=== PATIENT | female | born 1960 | race Caucasian/White ===

== ENCOUNTER 2016-10-21 19:33 | Observation (INO) | payer OTHER ==
[~2016-10-21] VITALS: Ht 167.6 cm; Wt 68.2 kg
[~2016-10-21 19:33] MED LIST: CETI10 PO; CO Q100C PO; ECOT81TA2 PO; ESTR1TAB PO; MULT1TAB PO; OMEG1CAP53 PO; VITA100018 PO; VITA100T7 PO; VITD400 PO
--- NOTE | 2016-10-21 19:52 | PD ---
HPI Chief Complaint: Neuro Symptoms/ Deficits Time Seen by Provider: 19:46 Travel History International Travel<30 days: No Contact w/Intl Traveler<30days: No Traveled to known affect area: No History of Present Illness HPI The patient is a 56-year-old female that at 1:30 noticed some very slight right arm and right leg weakness. The right arm weakness has mostly gone away but she still can feel a "shakiness" in her right leg. She says it feels slightly weak. She can walk normally and she can use her arm and hand normal headache. She denies any scotomata, eye symptoms or cranial nerve problems. She denies any fever. She states she felt slightly nauseated today at the beginning of the symptoms but is not nauseated now. She has not vomited. There is been no diarrhea or abdominal pain. The patient is taking 81 mg aspirin daily. PFSH Past Medical History Arthritis: No Asthma: No Autoimmune Disease: No Blood Disorders: No Anxiety: No Depression: Yes Heart Rhythm Problems: No Cancer: No Cardiovascular Problems: No High Cholesterol: No Chemotherapy: No Chest Pain: No Congestive Heart Failure: No COPD: No Cerebrovascular Accident: Yes (POSSIBLE -RELATED) Diabetes: No Diminished Hearing: No Endocrine: No Gastrointestinal Disorders: No GERD: No Glaucoma: No Genitourinary: No Headaches: No Hepatitis: No Hiatal Hernia: No Hypertension: No Immune Disorder: No Kidney Stones: No Musculoskeletal: No Neurologic: No Psychiatric: Yes Reproductive: No Respiratory: No Migraines: No Myocardial Infarction: No Radiation Therapy: No Renal Failure: No Seizures: No Sickle Cell Disease: No Sleep Apnea: No Thyroid Disease: No Ulcer: No PNEUMOCCOCAL Vaccine (Year): 2 Menopausal: Yes Tubal Ligation: Yes Past Surgical History Abdominal Surgery: No AICD: No Appendectomy: No Arteriovenous Shunt: No Cardiac Surgery: No Cholecystectomy: No Ear Surgery: No Endocrine Surgery: No Eye Surgery: Yes (LASIK) Genitourinary Surgery: No Gynecologic Surgery: Yes (TUBAL LIGATION) Hysterectomy: Yes Insulin Pump: No Joint Replacement: No Oral Surgery: No Pacemaker: No Thoracic Surgery: Yes (BILATERAL BREAST IMPLANTS) Other Surgery: Yes (BREAST AUGMENTATION) Social History Alcohol Use: No Tobacco Use: No (QUIT 30 YEARS AGO) Substance Use: No Allergies-Medications (Allergen,Severity, Reaction): Coded Allergies: acetaminophen (Unverified Allergy, Severe, NAUSEA, 8/26/17) ofloxacin (Unverified Allergy, Severe, DIZZINESS, 10/21/16) prednisone (Unverified Allergy, Severe, FACE REDNESS, BAD HEADACHES, ) sertraline (Unverified Allergy, Severe, BURNING SENSATION, 10/21/16) Reported Meds & Prescriptions Reported Meds & Active Scripts Active Review of Systems Except as stated in HPI: all other systems reviewed are Neg Physical Exam Narrative GENERAL: The patient is alert, oriented 3 in no apparent distress. SKIN: Focused skin assessment warm/dry. HEAD: Atraumatic. Normocephalic. EYES: Pupils equal and round. No scleral icterus. No injection or drainage. ENT: No nasal bleeding or discharge. Mucous membranes pink and moist. NECK: Trachea midline. No JVD. CARDIOVASCULAR: Regular rate and rhythm. No murmur appreciated. RESPIRATORY: No accessory muscle use. Clear to auscultation. Breath sounds equal bilaterally. GASTROINTESTINAL: Abdomen soft, non-tender, nondistended. Hepatic and splenic margins not palpable. MUSCULOSKELETAL: No obvious deformities. No clubbing. No cyanosis. No edema. NEUROLOGICAL: Awake and alert. No obvious cranial nerve deficits. Motor grossly within normal limits. Normal speech and gait. She does have a slight shakiness of her right foot on strength testing. Pinprick sensation is normal bilaterally. PSYCHIATRIC: Appropriate mood and affect; insight and judgment normal. Data Data Last Documented VS Vital Signs Date Time Temp Pulse Resp B/P (MAP) Pulse Ox O2 Delivery O2 Flow Rate FiO2 10/21/16 20:20 14 98 Room Air 10/21/16 19:59 98.3 70 145/75 (98) Orders Orders Electrocardiogram (10/21/16 19:46) Prothrombin Time / Inr (Pt) (10/21/16 19:46) Act Partial Throm Time (Ptt) (10/21/16 19:46) Complete Blood Count With Diff (10/21/16 19:46) Comprehensive Metabolic Panel (10/21/16 19:46) Creatine Kinase (Cpk) (10/21/16 19:46) Troponin I (10/21/16 19:46) Urinalysis - C+S If Indicated (10/21/16 19:46) Ct Brain W/O Iv Contrast(Rout) (10/21/16 19:46) Ecg Monitoring (10/21/16 19:46) Iv Access Insert/Monitor (10/21/16 19:46) Oximetry (10/21/16 19:46) Sodium Chloride 0.9% Flush (Ns Flush) (10/21/16 20:00) Labs Laboratory Tests Test 10/21/16 19:54 10/21/16 20:00 White Blood Count 12.7 TH/MM3 Red Blood Count 4.88 MIL/MM3 Hemoglobin 14.3 GM/DL Hematocrit 43.7 % Mean Corpuscular Volume 89.6 FL Mean Corpuscular Hemoglobin 29.4 PG Mean Corpuscular Hemoglobin Concent 32.8 % Red Cell Distribution Width 11.7 % Platelet Count 438 TH/MM3 Mean Platelet Volume 7.7 FL Neutrophils (%) (Auto) 72.1 % Lymphocytes (%) (Auto) 24.6 % Monocytes (%) (Auto) 2.9 % Eosinophils (%) (Auto) 0.1 % Basophils (%) (Auto) 0.3 % Neutrophils # (Auto) 9.2 TH/MM3 Lymphocytes # (Auto) 3.1 TH/MM3 Monocytes # (Auto) 0.4 TH/MM3 Eosinophils # (Auto) 0.0 TH/MM3 Basophils # (Auto) 0.0 TH/MM3 CBC Comment DIFF FINAL Differential Comment Prothrombin Time 10.3 SEC Prothromb Time International Ratio 0.9 RATIO Activated Partial Thromboplast Time 29.8 SEC Blood Urea Nitrogen 15 MG/DL Creatinine 0.88 MG/DL Random Glucose 125 MG/DL Total Protein 8.2 GM/DL Albumin 3.8 GM/DL Calcium Level 9.2 MG/DL Alkaline Phosphatase 115 U/L Aspartate Amino Transf (AST/SGOT) 32 U/L Alanine Aminotransferase (ALT/SGPT) 65 U/L Total Bilirubin 0.4 MG/DL Sodium Level 139 MEQ/L Potassium Level 3.5 MEQ/L Chloride Level 105 MEQ/L Carbon Dioxide Level 24.3 MEQ/L Anion Gap 10 MEQ/L Estimat Glomerular Filtration Rate 67 ML/MIN Total Creatine Kinase 110 U/L Troponin I LESS THAN 0.02 NG/ML Urine Color YELLOW Urine Turbidity SLIGHT Urine pH 7.0 Urine Specific [place] 1.020 Urine Protein 30 mg/dL Urine Glucose (UA) NEG mg/dL Urine Ketones TRACE mg/dL Urine Occult Blood TRACE Urine Nitrite NEG Urine Bilirubin NEG Urine Leukocyte Esterase NEG Urine RBC 0-3 /hpf Urine Squamous Epithelial Cells 0-5 /hpf Urine Bacteria OCC /hpf Urine Mucus OCC /lpf Microscopic Urinalysis Comment CULT NOT INDICATED MDM Medical Decision Making Medical Screen Exam Complete: Yes Emergency Medical Condition: Yes Medical Record Reviewed: Yes Interpretation(s) The EKG shows sinus rhythm with no acute change. The urine shows trace ketones , trace blood and occasional bacteria but is otherwise normal and culture is not indicated. The coagulation profile is normal. The complete metabolic profile shows a GFR of 67, ALT of 65 but is otherwise normal. The cardiac enzymes are normal. The CBC shows a white count of 12,700 with 72% neutrophils but is otherwise normal. The CT brain is normal. Differential Diagnosis Ischemic CVA, electrolyte disorder, hypo-/hyperglycemia, renal insufficiency urinary tract infection Narrative Course By the patient's history, she appears to have had a CVA.Neurologic testing cannot pickle solution maker any weakness but the patient feels weakness. She feels weakness in her right leg and feels like her right leg is giving away. The patient will be [address] Quique Jasso, I discussed the patient with him. We will put the patient on Plavix. Crow Burleson MD Oct 21, 2016 19:51
[2016-10-21 19:59] VITALS: BP 145/75; PULSE 70; RESP 14; TEMP 98.3; O2SAT 98
[2016-10-21 20:00] LABS: AUTOMATED NEUTROPHIL # 9.2 TH/MM3 (1.8-7.7); BASOPHIL % 0.3 % (0.0-2.0); EOSINOPHIL % 0.1 % (0.0-4.0); HEMATOCRIT 43.7 % (35.0-46.0); HEMO FLAGS DIFF FINAL; LYMPH % 24.6 % (9.0-44.0); LYMPHOCYTE # 3.1 TH/MM3 (1.0-4.8); MEAN CELL VOLUME 89.6 FL (80.0-100.0); MEAN CORPUSCULAR HEMOGLOBIN 29.4 PG (27.0-34.0); MEAN CORPUSCULAR HGB CONC 32.8 % (32.0-36.0); MONO % 2.9 % (0.0-8.0); NEUT % 72.1 % (16.0-70.0); PLATELET COUNT 438 TH/MM3 (150-450); RED BLOOD COUNT 4.88 MIL/MM3 (4.00-5.30); RED CELL DISTRIBUTION WIDTH 11.7 % (11.6-17.2); WHITE BLOOD COUNT 12.7 TH/MM3 (4.0-11.0)
[2016-10-21] MEDS ORDERED: SODIUM CHLORIDE 0.9% FLUSH 10 ML FLUSH IVF PRN (20:00)
[2016-10-21 20:08] LABS: CHLORIDE 105 MEQ/L (98-107); POTASSIUM 3.5 MEQ/L (3.5-5.1); SODIUM (NA) 139 MEQ/L (136-145)
[2016-10-21 20:12] LABS: ANION GAP 10 MEQ/L (5-15); BICARBONATE 24.3 MEQ/L (21.0-32.0); BLOOD UREA NITROGEN 15 MG/DL (7-18)
[2016-10-21 20:15] LABS: ALT (GPT) 65 U/L (10-53); AST (GOT) 32 U/L (15-37); GLOMERULAR FILTRATION RATE 67 ML/MIN (>89)
[2016-10-21 20:17] LABS: TOTAL BILIRUBIN ADULT 0.4 MG/DL (0.2-1.0)
[2016-10-21 20:18] LABS: ALKALINE PHOSPHATASE 115 U/L (45-117); CREATINE KINASE 110 U/L (26-192)
[2016-10-21 20:20] VITALS: RESP 14; O2SAT 98
[2016-10-21 20:20] LABS: BLOOD, URINE TRACE (NEG); GLUCOSE,URINE NEG (NEG); KETONE, URINE TRACE mg/dL (NEG); NITRITE,URINE NEG (NEG)
[2016-10-21 20:21] LABS: APTT (PATIENT) 29.8 SEC (24.3-30.1); INTERNATIONAL NORMALIZED RATIO 0.9 RATIO; PROTHROMBIN TIME - PATIENT 10.3 SEC (9.8-11.6)
[2016-10-21 20:26] LABS: URINE COLOR YELLOW (YELLW/STRAW)
[2016-10-21 20:27] LABS: BACTERIA, URINE OCC /hpf; COMMENT (UR) CULT NOT INDICATED; CULTURE IF INDICATED CULT NOT INDICATED; MUCUS URINE OCC /lpf (OCC); RBC, URINE 0-3 /hpf (0-3); SQUAMOUS EPITHELIAL CELL URINE 0-5 /hpf (0-5)
--- NOTE | 2016-10-21 20:44 | RADRPT ---
EXAM DATE/TIME: 10/21/2016 20:16 [facility] COMPARISON: CT BRAIN W/O CONTRAST, October 02, 2014, 22:37. INDICATIONS : Right sided body and leg weakness today. RADIATION DOSE: 58.01 CTDIvol (mGy) MEDICAL HISTORY : Cerebrovascular disease. Stroke SURGICAL HISTORY : None. ENCOUNTER: Initial ACUITY: 1 day PAIN SCALE: 0/10 LOCATION: Right TECHNIQUE: Multiple contiguous axial images were obtained of the head. Using automated exposure control and adj ustment of the mA and/or kV according to patient size, radiation dose was kept as low as reasonably a chievable to obtain optimal diagnostic quality images. DICOM format image data is available electro nically for review and comparison. FINDINGS: CEREBRUM: The ventricles are normal for age. No evidence of midline shift, mass lesion, hemorrhage or acute in farction. No extra-axial fluid collections are seen. POSTERIOR FOSSA: The cerebellum and brainstem are intact. The 4th ventricle is midline. The cerebellopontine angle i s unremarkable. EXTRACRANIAL: The visualized portion of the orbits is intact. SKULL: The calvaria is intact. No evidence of skull fracture. CONCLUSION: No acute disease. Osman Orta MD on October 21, 2016 at 20:42 Board Certified Radiologist. This report was verified electronically.
[2016-10-21] MEDS ORDERED: CLOPIDOGREL 75 MG TAB PO ONE (21:00)
[2016-10-21] MEDS ORDERED: IOHEXOL 350 MG/ML 10 ML VIAL (for RAD DIAG) IVCONTRAST ONE (21:05)
[2016-10-21 21:08] VITALS: BP 145/76; PULSE 76; RESP 16; O2SAT 97
[2016-10-21] MEDS ORDERED: VITA500T83 PO (21:17)
[2016-10-21] MEDS ORDERED: MULTTAB67 PO (21:17)
[2016-10-21] MEDS ORDERED: ESTR1 PO (21:17)
[2016-10-21] MEDS ORDERED: OMEGCAP PO (21:17)
[2016-10-21] MEDS ORDERED: CHOL1CAP6 PO (21:17)
[2016-10-21] MEDS ORDERED: ASPI81TA11 PO (21:17)
[2016-10-21] MEDS ORDERED: CETI10CA3 PO (21:17)
[2016-10-21 21:55] VITALS: BP 146/78; PULSE 66; RESP 16; O2SAT 97
--- NOTE | 2016-10-21 22:18 | RADRPT ---
EXAM DATE/TIME: 10/21/2016 21:17 [facility] COMPARISON: No previous studies available for comparison. INDICATIONS : Right sided body and leg weakness. IV CONTRAST: 71 cc Omnipaque 350 (iohexol) IV RADIATION DOSE: 13.52 CTDIvol (mGy) MEDICAL HISTORY : Cerebrovascular disease. Stroke SURGICAL HISTORY : None. ENCOUNTER: Initial ACUITY: 1 day PAIN SCALE: 0/10 LOCATION: Right Elevated flow velocities and ICA/CCA ratios have been found to correlate with increased degrees of vessel stenosis, calculated as percentage of diameter relative to a normal segment of distal ICA/CCA. TECHNIQUE: Volumetric scanning was performed using a multirow detector CT scanner. The data was post processed with a variety of visualization algorithms including full-volume maximum intensity projection, multip lanar sliding thin-slab reformation, curved-planar reformation, and surface-rendering techniques. Us ing automated exposure control and adjustment of the mA and/or kV according to patient size, radiatio n dose was kept as low as reasonably achievable to obtain optimal diagnostic quality images. DICOM f ormat image data is available electronically for review and comparison. FINDINGS: AORTIC ARCH: There is a three-vessel origin of the great vessels from the aorta. No evidence of ostial narrowing. RIGHT CAROTID: The common carotid artery is intact. The carotid bulb has a normal configuration without ulceration o r narrowing. The internal carotid artery lumen is smooth without stenosis. The external carotid stan ry is intact. LEFT CAROTID: The common carotid artery is intact. The carotid bulb has a normal configuration without ulceration or narrowing. The internal carotid artery lumen is smooth without stenosis. The external carotid ar maribell is intact. VERTEBRALS: The vertebral arteries have a symmetric diameter. No stenotic lesions are seen. CONCLUSION: No acute disease. Osman Orta MD on October 21, 2016 at 22:14 Board Certified Radiologist. This report was verified electronically.
--- NOTE | 2016-10-21 22:31 | RADRPT ---
EXAM DATE/TIME: 10/21/2016 22:24 [facility] COMPARISON: No previous studies available for comparison. INDICATIONS : Right sided weakness. MEDICAL HISTORY : Cerebrovascular disease. Factor 5 SURGICAL HISTORY : Hysterectomy. ENCOUNTER: Initial ACUITY: 1 day PAIN SCORE: 0/10 LOCATION: cranial Please note a normal MRA of the brain does not entirely exclude the possibility of a small aneurysm, nor the possibility of distal intracranial vessel disease. TECHNIQUE: 3D time of flight MRA was performed. Source images, multiplanar STS MIP, and 3D volume MIP reconstru ctions were reviewed. FINDINGS: There is excellent visualization of the major intracranial arteries out to the second-order branch ve ssels. There is no evidence for aneurysm, vessel truncation or stenosis, and no evidence for vascula r malformation. CONCLUSION: No acute disease. Osman Orta MD on October 21, 2016 at 22:29 Board Certified Radiologist. This report was verified electronically.
--- NOTE | 2016-10-21 22:43 | RADRPT ---
EXAM DATE/TIME: 10/21/2016 22:24 [facility] COMPARISON: No previous studies available for comparison. INDICATIONS : Right sided weakness. MEDICAL HISTORY : Cerebrovascular disease. Factor 5 SURGICAL HISTORY : Hysterectomy. ENCOUNTER: Initial ACUITY: 1 day PAIN SCORE: 0/10 LOCATION: cranial TECHNIQUE: Multiplanar, multisequence MRI of the brain was performed without contrast. FINDINGS: CEREBRUM: The ventricles are normal for age. No evidence of midline shift, mass lesion, hemorrhage or acute in farction. No extraaxial fluid collections are seen. The pituitary gland and suprasellar cistern are normal in configuration. WHITE MATTER: No significant signal abnormalities are seen in the white matter. POSTERIOR FOSSA: The cerebellum and brainstem are intact. The 4th ventricle is midline. The cerebellopontine angle is unremarkable. The cerebellar tonsils are normal in position. DIFFUSION IMAGING: No focal areas of restricted diffusion are seen. No evidence of acute infarction. EXTRACRANIAL: The visualized portions of the orbits and paranasal sinuses are unremarkable. CONCLUSION: No acute disease. Osman Orta MD on October 21, 2016 at 22:40 Board Certified Radiologist. This report was verified electronically.
[2016-10-21 22:45] VITALS: BP 135/76; PULSE 71; RESP 16; O2SAT 97
[2016-10-21 23:43] VITALS: BP 151/94; PULSE 68; RESP 20; TEMP 97.5; O2SAT 96
[2016-10-22] MEDS ORDERED: CETIRIZINE HCL 10 MG TAB PO PRN (07:00)
[2016-10-22] MEDS ORDERED: PILL SPLITTER OTHER PRN (07:00)
[2016-10-22 08:00] VITALS: BP 130/72; PULSE 76; RESP 18; TEMP 97.1; O2SAT 97
--- NOTE | 2016-10-22 08:27 | MH ---
cc: ALISSA KIM M.D. DATE OF ADMISSION: 10/21/2016 ADMISSION DIAGNOSIS 1. Possible TIA. 2. History of factor V Leiden mutation. 3. History of colon polyps. PERTINENT HISTORY This is a pleasant 56-year-old white female who yesterday afternoon noticed that she had maybe some very slight subjective weakness in her right arm and right leg. She actually could still use the arm and leg and was able to walk without any tripping, stumbling or limp or dragging of her leg. She was still able to operate and do coordinated activity right arm. She had a little bit of nausea. She had no slurred speech, visual symptoms, dizziness. She had no palpitations of her heart. She has been on aspirin 81 mg a day for awhile. By the time she got to the ED her symptoms were essentially gone other than she states then that her leg felt a little shaky but she was not noted to have any tremor of her leg. She has no symptoms now and feels like she is back to normal. She was admitted for observation overnight for further tests. She does mention that back 20 some years ago when she was about to deliver one of her children she had an episode of slurred speech then but was never told that she had an actual stroke then. She has seen a neurologist, Dr. Dumont for problem with the right upper extremity, tingling and facial tingling and it was determined to be due to a possible cervical spine issue. She denies any current neck pain. PAST MEDICAL HISTORY Denies any heart disease, hypertension, diabetes, no thyroid disease. No liver or kidney disease. No peptic ulcer disease. She states she had a colonoscopy about 5 years ago with a polyp removed. She has had pneumonia twice. No cancer. She has been diagnosed by Dr. Dumont a couple years ago with factor V Leiden mutation but she has had no history of DVT or pulmonary embolism. PAST SURGICAL HISTORY 1. She had a colonoscopy around 5 years ago as mentioned. 2. She has had Lasik surgery on both eyes. 3. She has had bilateral saline breast implants. 4. Tubal ligation. 5. She has had an arthroscopy of the right knee to clean it out. 6. She had laparoscopic supracervical hysterectomy and BSO. ALLERGIES TYLENOL. She had some symptoms when she took ZOLOFT briefly. She has had problems with PREDNISONE but states she can get injectable prednisone. She had dizziness with OFLOXACIN. MEDICATIONS 1. She takes aspirin 81 mg daily. 2. She has Estradiol 1 mg that she states she usually only takes it maybe twice a week. 3. She takes some various kdiy-lav-mrayutw vitamins. FAMILY HISTORY Her mother is living, has had a heart attack, age 52. Father at 82 of mouth cancer, he also had prior history of throat cancer. SOCIAL HISTORY She is . 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 Does not use alcohol. She quit smoking in 1980 but states she only smoked for 2 years. REVIEW OF SYSTEMS GENERAL: No fever, chills or sweats. HEENT: No visual symptoms. No hearing complaints. No sore throat. No nasal symptoms currently. CARDIOVASCULAR: No chest pain, orthopnea, PND. No palpitations. PULMONARY: No cough, hemoptysis, wheezing. GI: No melena, rectal bleeding, constipation, diarrhea. : No dysuria, urgency, frequency. SKIN: Without rash. MUSCULOSKELETAL: Without current complaints. NEURO: As mentioned. PHYSICAL EXAMINATION GENERAL: Pleasant white female, in no acute distress. VITAL SIGNS: BP 146/78, 135/76. Pulse is in the 70s and regular. Temperature 97.5, respirations 20. HEENT: Pupils equal. Sclerae nonicteric. Pupils equally react to light. Nose negative. Mouth without inflammation, lesion. Has dentures. NECK: Without JVD. No bruit. No adenopathy. No thyromegaly. HEART: Regular rate and rhythm. No murmurs. LUNGS: Lungs were clear. ABDOMEN: Soft, nontender, no masses. EXTREMITIES: No edema. Pulses good in the feet. No calf tenderness. SKIN: Negative. NEURO: Oriented x3. Cranial nerves intact. Motor strength symmetrical, sensation intact. Lqkk-[id number] to ramirez testing normal. Adlxwi-ml-ggpp testing normal. Alternating hand movements normal. Negative Romberg sign. GAIT: She can walk in a straight line without any ataxia. She had no trouble with any difficulty walking with no ataxia. LABORATORY Her _MP was negative. Her GFR is 67, random glucose 125. Her ALT was just a little high at 65, AST 32, ALT could be up from her estrogen. Creatinine kinase, troponin, total protein, albumin normal. UA was unremarkable with just some negative for nitrite and leukocyte esterase. White count was 12.7, hemoglobin 14.3, platelet count 438,000. Lipid profile and TSH were ordered this morning and are pending still. IMAGING STUDIES Her CT brain scan showed no acute disease. A CTA of the neck showed no acute disease. Brain MRI showed no acute disease. MRA of the head showed no acute disease. ASSESSMENT 1. Possible TIA with symptoms totally resolved. 2. History of factor V Leiden mutation. 3. History of colon polyps. PLAN Clinically her symptoms resolved. Her imaging studies so far have been negative. We have her ordered for a 2-D echocardiogram but we will let her go home after that is done today. We have put her on Plavix. She will stay on aspirin 81 mg a day. I told her she should follow up with her primary care physician within a week and also arrange for follow-up appointment with Dr. Dumont, Neurology that she has seen in the past. I do not think it is necessary to have neurology see her at this time since her symptoms were very minimal and very brief and have resolved. I did tell her to stop her estradiol. MD MARYELLEN Wallis/ELLIOTT /6:30 AM /7:55 AM
[2016-10-22] MEDS ORDERED: NON-FORMULARY DRUG (Fish Oil-Cholecalciferol (Omega-3 Fish Oil/Vitamin) 1 CAP) PO SCH (09:00)
[2016-10-22] MEDS ORDERED: MULTIVITAMIN TAB PO SCH (09:00)
[2016-10-22] MEDS ORDERED: ASPIRIN EC 81 MG TABEC PO SCH (09:00)
[2016-10-22] MEDS ORDERED: ASCORBIC ACID 500 MG TAB PO SCH (09:00)
[2016-10-22] MEDS ORDERED: CHOLECALCIFEROL (VIT D3) 1000 UNIT TAB PO SCH (09:00)
[2016-10-22] MEDS ORDERED: CLOPIDOGREL 75 MG TAB PO SCH (09:00)
[2016-10-22 09:11] LABS: AUTOMATED NEUTROPHIL # 7.5 TH/MM3 (1.8-7.7); BASOPHIL # 0.1 TH/MM3 (0-0.2); BASOPHIL % 0.6 % (0.0-2.0); EOSINOPHIL % 0.3 % (0.0-4.0); HEMATOCRIT 42.7 % (35.0-46.0); HEMO FLAGS DIFF FINAL; LYMPH % 25.2 % (9.0-44.0); LYMPHOCYTE # 2.7 TH/MM3 (1.0-4.8); MEAN CELL VOLUME 89.9 FL (80.0-100.0); MEAN CORPUSCULAR HEMOGLOBIN 30.7 PG (27.0-34.0); MEAN CORPUSCULAR HGB CONC 34.1 % (32.0-36.0); MONO % 4.5 % (0.0-8.0); NEUT % 69.4 % (16.0-70.0); PLATELET COUNT 420 TH/MM3 (150-450); RED BLOOD COUNT 4.74 MIL/MM3 (4.00-5.30); RED CELL DISTRIBUTION WIDTH 12.1 % (11.6-17.2); WHITE BLOOD COUNT 10.8 TH/MM3 (4.0-11.0)
[2016-10-22 12:00] VITALS: BP 115/69; PULSE 76; RESP 18; TEMP 97; O2SAT 97
--- NOTE | 2016-10-22 12:35 | ECHRPT ---
Indication: CVA/TIA CONCLUSIONS Normal left ventricular size and wall thickness. The left ventricular systolic function is normal wi th an estimated ejection fraction in the range of 60-65%. Left ventricular diastolic function parameters a re normal. The pulmonary valve is not well visualized. BP: 151 / 94 HR: 113 Rhythm: Sinus MEASUREMENTS (Male / Female) Normal Values Technical Quality:Good 2D ECHO LV Diastolic Diameter PLAX 3.8 cm 4.2 - 5.9 / 3.9 - 5.3 cm LV Systolic Diameter PLAX 2.5 cm IVS Diastolic Thickness 1.1 cm 0.6 - 1.0 / 0.6 - 0.9 cm LVPW Diastolic Thickness 1.1 cm 0.6 - 1.0 / 0.6 - 0.9 cm LV Relative Wall Thickness 0.6 RV Internal Dim ED PLAX 2.1 cm LVOT Diameter 2.1 cm LA Systolic Diameter LX 2.5 cm 3.0 - 4.0 / 2.7 - 3.8 cm LV Ejection Fraction MOD 4C 65.0 % LV Cardiac Index MOD 4C 2464.7 cm/minm LV Ejection Fraction 4C AL 66.8 % LV Cardiac Index 4C AL 2651.7 cm/minm M-MODE Aortic Root Diameter MM 2.4 cm AV Cusp Separation MM 1.7 cm DOPPLER AV Peak Velocity 176.0 cm/s AV Peak Gradient 12.4 mmHg LVOT Peak Velocity 100.0 cm/s LVOT Peak Gradient 4.0 mmHg AV Area Cont Eq pk 2.0 cm LV E' Lateral Velocity 7.8 cm/s PV Peak Velocity 96.4 cm/s PV Peak Gradient 3.7 mmHg FINDINGS LEFT VENTRICLE Normal left ventricular size and wall thickness. The left ventricular systolic function is normal wi th an estimated ejection fraction in the range of 60-65%. Left ventricular diastolic function parameters a re normal. RIGHT VENTRICLE Normal right ventricular size and systolic function. LEFT ATRIUM The left atrial size is normal. RIGHT ATRIUM The right atrial size is normal. ATRIAL SEPTUM Normal atrial septal thickness without atrial level shunting by limited color doppler interrogation. AORTA The aortic root and proximal ascending aorta are normal in size on limited imaging. MITRAL VALVE Structurally normal mitral valve. No mitral valve stenosis or regurgitation. AORTIC VALVE Trileaflet aortic valve. No aortic valve stenosis or regurgitation. TRICUSPID VALVE Structurally normal tricuspid valve. No tricuspid valve stenosis or regurgitation. PULMONARY VALVE The pulmonary valve is not well visualized. VESSELS The inferior vena cava is normal in size. PERICARDIUM No pericardial effusion. Michi Barnett MD (Electronically Signed) Final Date:22 October 2016 12:34
[2016-10-22] MEDS ORDERED: PLAV75TA29 PO (14:01)
--- NOTE | 2016-10-28 01:28 | EKG ---
Date Performed: 10/21/2016 Time Performed: 19:46:45 PTAGE: 56 years EKG: Sinus rhythm MINIMAL ST DEPRESSION BORDERLINE ECG INTERPRETATION BASED ON A DEFAULT AGE OF 40 YEARS Compared to t rosangela PREVIOUS TRACING from 04/09/09, no significant change DOCTOR: Rylan Wheat Interpretating Date/Time 10/28/2016 01:26:59
== END 2016-10-22 14:30 | disposition home or self-care (01) ==
LOC: PHED 19:33 → PHEDA 21:04 → PH5A 22:55
PROVIDERS: ADMIT Family Medicine; ATTEND Family Medicine
DX: R53.1 Weakness (principal); D68.51 Activated protein C resistance; Z86.73 Personal history of transient ischemic attack (TIA), and cerebral infarction without residual deficits; Z86.010 Personal history of colon polyps; Z87.891 Personal history of nicotine dependence; Z79.82 Long term (current) use of aspirin; Z98.82 Breast implant status
CPT/HCPCS: 70450; 70498; 70544; 70551; 80053; 81001; 82550; 84484; 85025; 85610; 85730; 93005; 93306; 99285; G0378; Q9967